=== PATIENT | female | born 1955 | race Caucasian/White ===

== ENCOUNTER 2019-02-17 12:49 | Emergency (ER) | payer MEDICARE, MEDICAID ==
[~2019-02-17] VITALS: Ht 162.6 cm; Wt 58.5 kg
--- NOTE | 2019-02-17 13:08 | NUR ---
RUFUS, C/O LEFT FLANK PAIN STARTED THIS MORNING, NOTED BLOOD IN THE URINE 2 DAYS AGO, ALSO C/O NAUSEA. TO ER BED 9, HOOKED TO MONITOR, CHANGED TO GOWN, PROVIDED W WARM BLANKET, AWAITING MD IGLESIAS
--- NOTE | 2019-02-17 13:11 | NUR ---
DR GIL AT BEDSIDE
[2019-02-17] MEDS ORDERED: KETOROLAC TROMETHAMINE 15 MG/ML VIAL ONE (13:24)
[2019-02-17] MEDS ORDERED: ONDANSETRON HCL/PF 4 MG/2 ML VIAL ONE (13:25)
[2019-02-17 13:26] LABS: BASOPHILS % (AUTO) 0.3 % (0.0-2.0); EOSINOPHILS % (AUTO) 0.5 % (0.0-6.0); HEMATOCRIT 44 % (33-45); HEMOGLOBIN 14.6 g/dL (11.5-14.8); LYMPHOCYTES % (AUTO) 8.5 % (20.0-44.0); MEAN CORPUSCULAR HGB CONC 33 g/dl (31.0-36.0); MEAN CORPUSCULAR VOLUME 95 fL (82-100); MONOCYTES # (AUTO) 0.6 /CMM (0.1-1.30); MONOCYTES % (AUTO) 5.3 % (2.0-12.0); NEUTROPHILS # (AUTO) 9.6 /CMM (1.8-8.9); NEUTROPHILS % (AUTO) 85.4 % (43.0-81.0); PLATELET COUNT (AUTO) 269 /CMM (150-450); RED BLOOD CELL COUNT(AUTO) 4.63 MIL/uL (4.0-5.2); WHITE BLOOD COUNT (AUTO) 11.2 K/uL (4.3-11.0)
[2019-02-17] MEDS ORDERED: ONDANSETRON HCL/PF 4 MG/2 ML VIAL IVP ONE (13:30)
[2019-02-17] MEDS ORDERED: KETOROLAC TROMETHAMINE INJ 30 MG/ML VIAL IV ONE (13:30)
[2019-02-17 13:33] LABS: CALCIUM, SERUM 9.3 mg/dL (8.5-10.1); CREATININE 0.9 mg/dL (0.6-1.3); POTASSIUM 3.9 mmol/L (3.5-5.1)
--- NOTE | 2019-02-17 13:34 | NUR ---
URINE SAMPLE COLLECTED AND SENT TO LAB.
[2019-02-17 13:39] LABS: ALBUMIN 4.1 g/dL (3.4-5.0); BILIRUBIN,DIRECT 0.1 mg/dL (0.0-0.2); BILIRUBIN,TOTAL 0.4 mg/dL (0.2-1.0); TOTAL PROTEIN, SERUM 7.6 g/dL (6.4-8.2)
[2019-02-17 13:41] LABS: BILIRUBIN,URINE SMALL (NEGATIVE); BLOOD, URINE Large Ery/uL (NEGATIVE); KETONES,URINE Trace (NEGATIVE); LEUKOCYTE ESTERASE ,URINE Negative (NEGATIVE); NITRITE, URINE Negative (NEGATIVE); PH,URINE 5.5 (5.0-8.0); PROTEIN,URINE 100 mg/dl (NEGATIVE); UGLUCOSE Negative (NEGATIVE); UROBILINOGEN,URINE 0.2 EU/dL (0.2)
[2019-02-17 13:44] LABS: APPEARANCE,URINE CLOUDY (CLEAR); COLOR,URINE OTHER (YELLOW)
[2019-02-17 13:45] LABS: BACTERIA,URINE Few /HPF (None Seen); CALCIUM OXALATE CRYSTALS,UR Few /HPF (None Seen); RBC,URINE 21-50 /HPF (0-2); SQUAMOUS EPITHELIAL CELL,UR Few /HPF (None Seen); YEAST,URINE Few /HPF (None Seen)
--- NOTE | 2019-02-17 14:48 | NUR ---
IV removed. Catheter intact and site benign. Pressure and 4x4 applied to site. No bleeding noted.Patient discharged to home in stable condition. Written and verbal after care instructions given. Patient verbalizes understanding of instruction.
[2019-02-17 14:49] VITALS: BP 146/92
== END 2019-02-17 14:50 | disposition home or self-care (01) ==
LOC: ER 13:05
DX: N13.2 Hydronephrosis with renal and ureteral calculous obstruction (principal); Z87.442 Personal history of urinary calculi
CPT/HCPCS: 36415; 74176; 80048; 80076; 81001; 83690; 85025; 87086; 96374; 96375; 99284; J1885; J2405; 81000-TC

== ENCOUNTER 2019-02-26 09:54 | Outpatient (CLI) | payer MEDICARE, MEDICAID ==
[2019-02-26] MEDS ORDERED: GADOTERIDOL 279.3 MG/ML VIAL IV ONE (09:55)
== END 2019-02-26 23:59 | disposition home or self-care (01) ==
LOC: MRI 09:54
DX: D25.9 Leiomyoma of uterus, unspecified (principal); D73.89 Other diseases of spleen
CPT/HCPCS: 72197; 74183; A9579

== ENCOUNTER 2020-09-17 08:45 | Inpatient (IN) | payer MEDICARE, OTHER ==
[~2020-09-17] VITALS: Ht 160 cm; Wt 61.2 kg
[2020-09-17] MEDS ORDERED: ERGO500014 PO (08:50)
[2020-09-17] MEDS ORDERED: ATOR40TA PO (08:50)
[2020-09-17] MEDS ORDERED: ASPI-1420 PO (08:50)
[2020-09-17] MEDS ORDERED: CLOP75TA15 PO (08:50)
[2020-09-17] MEDS ORDERED: METO25TA20 PO (08:50)
[2020-09-17] MEDS ORDERED: DILT-2 PO (08:50)
--- NOTE | 2020-09-17 09:07 | NUR ---
patient came in to the er c/o left sided chest sharp pain since last night. on room air, breathing evenly and unlabored. Connected to the monitor and pulse ox. Kept comfortable, will continue to monitor accordingly.
--- NOTE | 2020-09-17 09:08 | NUR ---
IV access initiated and blood drawned and sent to lab
[2020-09-17 09:16] LABS: BASOPHILS % (AUTO) 0.7 % (0.0-2.0); EOSINOPHILS % (AUTO) 8.7 % (0.0-6.0); HEMATOCRIT 42 % (33-45); HEMOGLOBIN 13.6 g/dL (11.5-14.8); LYMPHOCYTES # (AUTO) 1.6 /CMM (0.8-4.8); LYMPHOCYTES % (AUTO) 25.9 % (20.0-44.0); MEAN CORPUSCULAR HGB CONC 33 g/dl (31.0-36.0); MEAN CORPUSCULAR VOLUME 95 fL (82-100); MONOCYTES # (AUTO) 0.5 /CMM (0.1-1.30); MONOCYTES % (AUTO) 8.2 % (2.0-12.0); NEUTROPHILS # (AUTO) 3.6 /CMM (1.8-8.9); NEUTROPHILS % (AUTO) 56.5 % (43.0-81.0); PLATELET COUNT (AUTO) 217 /CMM (150-450); WHITE BLOOD COUNT (AUTO) 6.4 K/uL (4.3-11.0)
[2020-09-17 09:28] LABS: CARBON DIOXIDE 27 mmol/L (21-32); CHLORIDE 106 mmol/L (98-107); CREATININE 0.7 mg/dL (0.6-1.3); GLUCOSE 109 mg/dL (74-106); POTASSIUM 4.4 mmol/L (3.5-5.1); SODIUM SERUM 144 mmol/L (136-145); UREA NITROGEN, BLOOD 15 mg/dL (7-18)
[2020-09-17 09:34] LABS: ALANINE AMINOTRANSFERASE 61 U/L (12-78); ALBUMIN 3.8 g/dL (3.4-5.0); ALKALINE PHOSPHATASE 100 U/L (46-116); ASPARTATE AMINOTRANSFERASE 31 U/L (15-37); BILIRUBIN,DIRECT 0.1 mg/dL (0.0-0.2); BILIRUBIN,TOTAL 0.4 mg/dL (0.2-1.0); TOTAL PROTEIN, SERUM 7.2 g/dL (6.4-8.2)
[2020-09-17] MEDS ORDERED: ONDANSETRON HCL/PF 4 MG/2 ML VIAL ONE (09:51)
[2020-09-17] MEDS ORDERED: MORPHINE SULFATE INJ 2 MG/ML DISP.SYRIN ONE (09:52)
[2020-09-17] MEDS ORDERED: ONDANSETRON HCL/PF - ER 4 MG/2 ML VIAL IV ONE (10:00)
[2020-09-17] MEDS ORDERED: MORPHINE SULFATE INJ 2 MG/ML DISP.SYRIN IV ONE (10:00)
--- NOTE | 2020-09-17 10:05 | NUR ---
covid 19 swab collected and sent to lab
[2020-09-17] MEDS ORDERED: ASPIRIN 81 MG TAB.CHEW ONE (10:27)
[2020-09-17] MEDS ORDERED: ASPIRIN 81 MG TAB.CHEW PO ONE (10:30)
--- NOTE | 2020-09-17 10:36 | NUR ---
received a call from the lab regarding covid 19 result "negative".
--- NOTE | 2020-09-17 10:42 | NUR ---
Report given to Cherelle DE PAZ for roxane
--- NOTE | 2020-09-17 11:37 | NUR ---
ALUM PLANT SUPERVISOR NOTES RECEIVED PT FROM E.R. STAFF VIA [facility], PT IS AWAKE, ALERT AND ORIENTED, ASSISTED TO BED, MADE COMFORTABLE, WITH COMPLAINT OF SLIGHT PAIN AT THE LEFT SIDE OF CHEST, NOT IN DISTRESS, RESPIRATIONS NORMAL, ROOM SET UP ORIENTATION PROVIDED TO PT, VERBALIZED UNDERSTANDING, ADMITTING ORDERS RECEIVED FROM DR. PAGE, CALL LIGHT PLACED WITHIN REACH, PLACED ON TELE MONITORING, SB 50'S.
--- NOTE | 2020-09-17 11:37 | NUR ---
wheeled patient via gurney accompanied by EMT and rn in no distress. RN at bedside to assume care.
[2020-09-17] MEDS ORDERED: MAGNESIUM HYDROXIDE 30 ML UDC PO PRN (13:30)
[2020-09-17] MEDS ORDERED: ACETAMINOPHEN 325 MG TABLET PO PRN (13:30)
[2020-09-17] MEDS ORDERED: MAG HYDROX/AL HYDROX/SIMETH 30 ML UDC PO PRN (13:30)
[2020-09-17] MEDS ORDERED: ONDANSETRON HCL/PF 4 MG/2 ML VIAL IVP PRN (13:30)
[2020-09-17] MEDS ORDERED: Z GUARD REMEDY 2 OZ OINT TP PRN (13:30)
[2020-09-17] MEDS: INDOMETHACIN 25 MG CAPSULE PO SCH ×2 (14:58→22:07)
[2020-09-17 16:00] VITALS: BP 90/58
[2020-09-17] MEDS: METOPROLOL TARTRATE 25 MG TABLET PO SCH (17:00)
[2020-09-17] MEDS: HYDROCODONE/APAP 5/325MG TABLET PO PRN (17:03)
--- NOTE | 2020-09-17 17:09 | NUR ---
TOBACCO STRIPPER HAND NOTES NOTED WITH BP OF 90/58, HR 76, NO COMPLAINT OF DIZZINESS OR HEADACHE, NO CHANGE IN LOC, DR. PAGE INFORMED, NO NEW ORDER, WILL CONTINUE TO MONITOR.
--- NOTE | 2020-09-17 18:29 | NUR ---
Patient is A&Ox4. VSS with B/P running slightly low with SBP in 90s. continues to have burning pain to chest hurting more when taking deep breaths on the L side. Pain responded to PRN [place], effective. HR has been sinus bradycardia with HR in 50s. No signs of acute cardiac distress at this time.
[2020-09-17 18:30] VITALS: BP 109/67
--- NOTE | 2020-09-17 19:30 | NUR ---
TELE/RN OPENING NOTE RECEIVED PATIENT SLEEPING IN BED. ALERT AND ORIENTED X 4. ABLE TO MAKE NEEDS KNOWN. NO COMPLAINTS OF PAIN AT THIS TIME. CONTINUES ON ROOM AIR WITH NO S/SX OF RESPIRATORY DISTRESS NOTED. IV ACCESS TO RIGHT AC INTACT, PATENT AND SALINE LOCKED. TELE MONITOR READING NORMAL SINUS RHYTHM. CALL LIGHT WITHIN REACH. ASPIRATION, FALL AND SAFETY PRECAUTIONS MAINTAINED. WILL CONTINUE TO MONITOR.
[2020-09-17 20:00] VITALS: BP 100/58
[2020-09-17] MEDS ORDERED: INDOMETHACIN 25 MG CAPSULE ONE (21:51)
[2020-09-17] MEDS ORDERED: ATORVASTATIN 40 MG TABLET PO SCH (22:00)
[2020-09-18] VITALS: BP_SYST 104; BP_SYST 113; BP_DIAS 61; BP_DIAS 66
[2020-09-18] MEDS: HYDROCODONE/APAP 5/325MG TABLET PO PRN (00:47)
[2020-09-18 04:00] VITALS: BP 112/70
--- NOTE | 2020-09-18 06:25 | NUR ---
TELE/RN CLOSING NOTE PATIENT CURRENTLY SLEEPING IN BED. ALERT AND ORIENTED X 4. ABLE TO MAKE NEEDS KNOWN. NO COMPLAINTS OF PAIN AT THIS TIME. CONTINUES ON ROOM AIR WITH NO S/SX OF RESPIRATORY DISTRESS NOTED. IV ACCESS TO RIGHT AC INTACT, PATENT AND SALINE LOCKED. TELE MONITOR READING SINUS RHYTHM/SINUS JEFFERY. NO S/SX OF SOB, CHEST PAIN OR CONFUSION NOTED. CALL LIGHT WITHIN REACH. ASPIRATION, FALL AND SAFETY PRECAUTIONS MAINTAINED. WILL ENDORSE PLAN OF CARE TO ONCOMING SHIFT.
[2020-09-18 06:46] LABS: BASOPHILS % (AUTO) 0.7 % (0.0-2.0); EOSINOPHILS % (AUTO) 7.7 % (0.0-6.0); HEMATOCRIT 38 % (33-45); HEMOGLOBIN 12.6 g/dL (11.5-14.8); LYMPHOCYTES # (AUTO) 1.8 /CMM (0.8-4.8); LYMPHOCYTES % (AUTO) 34.7 % (20.0-44.0); MEAN CORPUSCULAR HGB CONC 33 g/dl (31.0-36.0); MEAN CORPUSCULAR VOLUME 94 fL (82-100); MONOCYTES # (AUTO) 0.5 /CMM (0.1-1.30); NEUTROPHILS # (AUTO) 2.5 /CMM (1.8-8.9); NEUTROPHILS % (AUTO) 47.9 % (43.0-81.0); PLATELET COUNT (AUTO) 182 /CMM (150-450); RED BLOOD CELL COUNT(AUTO) 4.04 MIL/uL (4.0-5.2); WHITE BLOOD COUNT (AUTO) 5.2 K/uL (4.3-11.0)
[2020-09-18 07:11] LABS: CALCIUM, SERUM 8.1 mg/dL (8.5-10.1); CREATININE 0.7 mg/dL (0.6-1.3); MAGNESIUM 2.3 mg/dL (1.8-2.4); PHOSPHORUS 4.3 mg/dL (2.5-4.9); POTASSIUM 4.1 mmol/L (3.5-5.1)
--- NOTE | 2020-09-18 07:41 | NUR ---
SIGNING TEACHER OPENING NOTES RECEIVED PATIENT IN BED, AWAKE, A/O X4. PATIENT ON ROOM AIR; BREATHING EVEN AND UNLABORED, NO SOB NOTED AT THIS TIME. NO COMPLAINS OF PAIN. TELE MONITOR WITH A CURRENT READING OF SR 86. IV ACCESS ON RAC G # 18, SL. SAFETY PRECAUTIONS IN PLACE; BED IN LOW POSITION AND LOCKED, RAILS UP X2, CALL LIGHT WITHIN REACH. WILL CONTINUE TO MONITOR PATIENT.
[2020-09-18 08:00] VITALS: BP 107/64
[2020-09-18] MEDS: METOPROLOL TARTRATE 25 MG TABLET PO SCH ×2 (08:25→08:39)
[2020-09-18 09:00] VITALS: BP 111/66
[2020-09-18] MEDS ORDERED: ASPIRIN EC 81 MG TABLET.DR PO SCH (09:00)
[2020-09-18] MEDS ORDERED: DILTIAZEM HCL CD 120 MG PO SCH (09:00)
[2020-09-18] MEDS ORDERED: CLOPIDOGREL BISULFATE 75 MG TABLET PO SCH (09:00)
--- NOTE | 2020-09-18 09:24 | NUR ---
POLICY SPECIALIST NOTES RECEIVED PATIENT IN BED, AWAKE, ABLE TO MAKE NEEDS KNOWN, A/O X4. PATIENT ON ROOM AIR, NO SOB NOTED, BREATHING EVEN AND UNLABORED, NO COMPLAINS OF PAIN. TELE MONITOR WITH A CURRENT READING OF SR 86 AND REMOVED AT THIS TIME, IV ACCESS ON RAC G # 18 INTACT, NO INFLAMMATION AND NO IRRITATION NOTED, SAFETY PRECAUTIONS IN PLACE - BED IN LOW POSITION AND LOCKED, RAILS UP X2, CALL LIGHT WITHIN REACH. NO ASPIRATION NOTED WITH PO MEDICATIONS NOTED, WILL CONTINUE TO MONITOR PATIENT.
--- NOTE | 2020-09-18 09:34 | NUR ---
MS RN NOTES 0900 CARDIZEM NON-ADMINISTERED; HR 55
[2020-09-18] MEDS: INDOMETHACIN 25 MG CAPSULE PO SCH (09:44)
--- NOTE | 2020-09-18 12:22 | NUR ---
ASSISTANT MERCHANDISE MANAGER NOTES PATIENT DISCHARGED TO GO HOME. WAS IN MEDICALLY STABLE CONDITION, TRANSFERED FROM BED TO EXIT ON OWN BY AMBULATING, PATIENT A/O X4, ON ROOM AIR , NO SOB NOTED, HAD NO C/O PAIN, ABLE TO MAKE NEEDS KNOWN. ALL DISCHARGE PAPERWORK COMPLETED AND PROVIDED TO PATIENT FOR SIGNATURE. TEACHING REGARDING DIAGNOSIS PROVIDED- PATIENT VERBALIZED UNDERSTANDING AND SIGNED ALL DOCUMENTS . BELONGINGS ACCOUNTED FOR AND SIGNED BELONGING FORM IN AGREEMENT OF HAVING ALL BELONGINGS AT SD . SKIN INTACT. PRIOR TO LEAVING THE IV ACCESS WAS REMOVED, PATIENT LEFT THE FLOOR AT 1210 AND WAS ACCOMPANIED BY RN , PATIENT LEFT THE HOSPITAL IN A PRIVATE CAR, AND SAFE TRANSFER NOTED.
== END 2020-09-18 12:25 | disposition home or self-care (01) | DRG 313 ==
LOC: ER 08:58 → TELE 10:36 → MED 09-18 09:46
PROVIDERS: ADMIT Internal Medicine; ATTEND Internal Medicine
DX: R07.89 Other chest pain (principal); J98.11 Atelectasis; Z95.1 Presence of aortocoronary bypass graft; I25.10 Atherosclerotic heart disease of native coronary artery without angina pectoris; Z79.02 Long term (current) use of antithrombotics/antiplatelets; Z79.82 Long term (current) use of aspirin; Z79.899 Other long term (current) drug therapy; E78.5 Hyperlipidemia, unspecified; I10 Essential (primary) hypertension; Z98.890 Other specified postprocedural states
CPT/HCPCS: 36415; 71045-TC; 80048-TC; 80061-TC; 80076-TC; 83735-TC; 83880; 84100-TC; 84484-TC; 85025-TC; 85378-TC; 87081-TC; 93307-TC; G0378; J2270; J2405

== ENCOUNTER 2020-10-05 03:54 | Emergency (ER) | payer MEDICARE, OTHER ==
[~2020-10-05] VITALS: Ht 160 cm; Wt 59.9 kg
[~2020-10-05 03:54] MED LIST: ASPI-1420 PO; ATOR40TA PO; CLOP75TA15 PO; DILT-2 PO; ERGO500014 PO; METO25TA20 PO
--- NOTE | 2020-10-05 04:30 | NUR ---
Patient came in to the er c/o nose bleed since 1130pm, on Plavix 75mg. On room air, breathing evenly and unlabored. Kept comfortable, will continue to monitor accordingly.
[2020-10-05] MEDS ORDERED: PHENYLEPHRINE 0.5% NASAL SPRAY 15 ML BOTTLE NS ONE ×2 (04:39→05:00)
[2020-10-05] MEDS ORDERED: OXYMETAZOLINE HCL NASAL SPRAY 30 ML BOTTLE NS ONE (05:00)
[2020-10-05 05:07] VITALS: BP 134/81
--- NOTE | 2020-10-05 05:08 | NUR ---
Patient discharged to home in stable condition. Written and verbal after care instructions given. Patient verbalizes understanding of instruction.
== END 2020-10-05 05:08 | disposition home or self-care (01) ==
LOC: ER 03:55
DX: R04.0 Epistaxis (principal); I10 Essential (primary) hypertension; Z95.1 Presence of aortocoronary bypass graft; Z79.899 Other long term (current) drug therapy; Z79.82 Long term (current) use of aspirin
CPT/HCPCS: 99282; A6403

== ENCOUNTER 2021-06-22 10:51 | Outpatient (CLI) | payer MEDICARE, MEDICAID ==
[~2021-06-22 10:51] MED LIST changes: -ERGO500014 PO; +ERGO500093 PO
[2021-06-22] MEDS ORDERED: IOHEXOL-300 100 ML VIAL IV ONE (12:20)
[2021-06-22] MEDS ORDERED: CT SWABBABLE VALVE TRANS SET 1 EA INFUS.SET MC ONE (12:20)
[2021-06-22] MEDS ORDERED: IV NS 0.9% 250 ML IV ONE (12:20)
== END 2021-06-22 23:59 | disposition home or self-care (01) ==
LOC: CT 10:51
DX: S32.019A Unspecified fracture of first lumbar vertebra, initial encounter for closed fracture (principal); N20.0 Calculus of kidney; E27.8 Other specified disorders of adrenal gland; K56.609 Unspecified intestinal obstruction, unspecified as to partial versus complete obstruction; D25.9 Leiomyoma of uterus, unspecified; I71.4 Abdominal aortic aneurysm, without rupture; M51.37 Other intervertebral disc degeneration, lumbosacral region; X58.XXXA Exposure to other specified factors, initial encounter; Y93.89 Activity, other specified; Y92.89 Other specified places as the place of occurrence of the external cause; Y99.8 Other external cause status
CPT/HCPCS: 74177; J7050; Q9967

== ENCOUNTER 2021-12-12 13:32 | Emergency (ER) | payer MEDICARE, OTHER ==
[~2021-12-12] VITALS: Ht 160 cm; Wt 59.9 kg
--- NOTE | 2021-12-12 13:43 | NUR ---
PT CONTINENT OF URINE. URINE COLLECTED.
--- NOTE | 2021-12-12 13:45 | NUR ---
PATIENT ARRIVED VIA PRIVATE CAR FOR LOWER BACK PAIN SINCE THIS AM. URINE SPECIMEN REQUESTED. TAKEN TO ER BED 4 FOR MD IGLESIAS.
--- NOTE | 2021-12-12 14:02 | NUR ---
DR ABERNATHY AT BEDSIDE FOR EVAL
--- NOTE | 2021-12-12 14:10 | NUR ---
HYDRO EXCAVATION OPERATOR AT BEDSIDE FOR XRAY
[2021-12-12] MEDS ORDERED: KETOROLAC TROMETHAMINE INJ 30 MG/ML VIAL IV ONE (14:30)
[2021-12-12] MEDS ORDERED: CYCLOBENZAPRINE 10 MG TABLET PO ONE (14:30)
[2021-12-12] MEDS ORDERED: MAG HYDROX/AL HYDROX/SIMETH 30 ML UDC PO ONE (14:30)
[2021-12-12] MEDS ORDERED: ONDANSETRON HCL/PF 4 MG/2 ML VIAL IVP ONE (14:30)
[2021-12-12] MEDS ORDERED: ACETAMINOPHEN 325 MG TABLET PO ONE (14:30)
[2021-12-12] MEDS ORDERED: LIDOCAINE 5% (PATCH) 1 EA PATCH TP SCH (14:30)
[2021-12-12] MEDS ORDERED: FAMOTIDINE/PF INJ 20 MG/2 ML VIAL IV ONE (14:30)
[2021-12-12 15:56] LABS: BASOPHILS % (AUTO) 0.5 % (0.0-2.0); EOSINOPHILS % (AUTO) 0.9 % (0.0-6.0); HEMATOCRIT 43 % (33-45); HEMOGLOBIN 14.2 g/dL (11.5-14.8); LYMPHOCYTES # (AUTO) 1.4 K/uL (0.8-4.8); LYMPHOCYTES % (AUTO) 24.1 % (20.0-44.0); MEAN CORPUSCULAR HGB CONC 33 g/dl (31.0-36.0); MEAN CORPUSCULAR VOLUME 94 fL (82-100); MONOCYTES # (AUTO) 0.4 K/uL (0.1-1.30); MONOCYTES % (AUTO) 6.1 % (2.0-12.0); NEUTROPHILS % (AUTO) 68.4 % (43.0-81.0); PLATELET COUNT (AUTO) 225 K/uL (150-450); RED BLOOD CELL COUNT(AUTO) 4.51 MIL/uL (4.0-5.2); WHITE BLOOD COUNT (AUTO) 5.9 K/uL (4.3-11.0)
[2021-12-12 16:10] LABS: BILIRUBIN,URINE NEGATIVE (NEGATIVE); COLOR,URINE YELLOW (YELLOW); LEUKOCYTE ESTERASE ,URINE LARGE (NEGATIVE); NITRITE, URINE NEGATIVE (NEGATIVE); PH,URINE 6.5 (5.0-8.0); PROTEIN,URINE NEGATIVE (NEGATIVE); UGLUCOSE NEGATIVE (NEGATIVE); UROBILINOGEN,URINE 0.2 EU/dL (0.2)
[2021-12-12 16:16] LABS: CALCIUM, SERUM 9.1 mg/dL (8.5-10.1); CREATININE 0.6 mg/dL (0.6-1.3); POTASSIUM 4.6 mmol/L (3.5-5.1)
[2021-12-12 16:25] LABS: BACTERIA,URINE 3+ /HPF (None Seen); WBC,URINE 21-50 /HPF (0-3)
[2021-12-12] MEDS ORDERED: TAMS-12 PO (17:21)
[2021-12-12] MEDS ORDERED: ONDA4TAB5 PO (17:21)
[2021-12-12] MEDS ORDERED: IBUP-1953 PO (17:21)
[2021-12-12] MEDS ORDERED: CEPH500C2 PO (17:21)
[2021-12-12] MEDS ORDERED: CEFTRIAXONE 1 G VIAL ONE (17:29)
[2021-12-12] MEDS ORDERED: KETOROLAC TROMETHAMINE INJ 30 MG/ML VIAL ONE (17:29)
[2021-12-12] MEDS ORDERED: CEFTRIAXONE 1 G VIAL IM ONE (17:30)
[2021-12-12] MEDS ORDERED: KETOROLAC TROMETHAMINE INJ 60 MG/2 ML VIAL IM ONE (17:30)
[2021-12-12 17:50] VITALS: BP 136/84
--- NOTE | 2021-12-12 17:50 | NUR ---
Patient discharged to home in stable condition. Written and verbal after care instructions given. Patient verbalizes understanding of instruction.
== END 2021-12-12 17:51 | disposition home or self-care (01) ==
LOC: ER 13:40
DX: N20.0 Calculus of kidney (principal); N39.0 Urinary tract infection, site not specified; I10 Essential (primary) hypertension; Z98.890 Other specified postprocedural states; Z60.2 Problems related to living alone; Z79.899 Other long term (current) drug therapy; Z79.82 Long term (current) use of aspirin
CPT/HCPCS: 99285; 74176; 96372 ×2; 71100; 85025; 80048; 87086; 81001; 36415; J0696; J1885